=== PATIENT | female | born 1995 | race Caucasian/White ===

== ENCOUNTER → 2022-06-06 | Outpatient (CLI) | payer OTHER ==
[2022-06-06 16:30] LABS: CREATININE,RANDOM URINE 37.2 MG/DL; HEMATOCRIT 43.1 % (36.0-47.0); HEMOGLOBIN 14.4 g/dl (12.0-15.5); MEAN CORPUSCULAR HEMOGLOBIN 29.9 pg (27.0-33.0); MEAN CORPUSCULAR HGB CONC 33.4 g/dl (32.0-36.5); MEAN CORPUSCULAR VOLUME 89.4 fl (80.0-96.0); PLATELET COUNT, AUTOMATED 266 10^3/uL (150-450); RED BLOOD COUNT 4.82 10^6/uL (4.00-5.40); WHITE BLOOD COUNT 8.8 10^3/uL (4.0-10.0)
[2022-06-06 16:31] LABS: TOTAL PROTEIN,RANDOM URINE < 6.0 MG/DL (0.0-14.0)
[2022-06-06 16:42] LABS: ALBUMIN 3.1 G/DL (3.2-5.2); ALKALINE PHOSPHATASE 143 U/L (46-116); ALT/SGPT 25 U/L (7.0-40); AST/SGOT 22 U/L (<34); BILIRUBIN,TOTAL 0.5 MG/DL (0.3-1.2); BLOOD UREA NITROGEN 9 MG/DL (9-23); CALCIUM LEVEL 9.2 MG/DL (8.5-10.1); CARBON DIOXIDE LEVEL 27 MMOL/L (20-31); CHLORIDE LEVEL 98 MMOL/L (98-107); CREATININE FOR GFR 0.57 MG/DL (0.55-1.30); GLOMERULAR FILTRATION RATE > 60.0 (>60); GLUCOSE, FASTING 102 MG/DL (60-100); POTASSIUM SERUM 3.5 MMOL/L (3.5-5.1); SODIUM LEVEL 134 MMOL/L (136-145); TOTAL PROTEIN 6.9 G/DL (5.7-8.2)
[2022-06-06 18:20] LABS: APPEARANCE, URINE HAZY (CLEAR); BACTERIA, URINE AUTO 1+ (NEGATIVE); BILIRUBIN, URINE AUTO NEGATIVE (NEGATIVE); BLOOD, URINE BLOOD NEGATIVE (NEGATIVE); COLOR, URINE YELLOW (YELLOW); GLUCOSE, URINE (UA) AUTO NEGATIVE (NEGATIVE); KETONE, URINE AUTO TRACE mg/dL (NEGATIVE); LEUKOCYTE ESTERASE, URINE AUTO NEGATIVE (NEGATIVE); NITRITE, URINE AUTO NEGATIVE (NEGATIVE); PROTEIN, URINE AUTO NEGATIVE (NEGATIVE); RBC, URINE AUTO 0 /HPF (0-3); SPECIFIC GRAVITY URINE AUTO 1.005 (1.002-1.035); SQUAMOUS EPITHELIAL CELL UR AU 6 /HPF (0-6); UROBILINOGEN, URINE AUTO 0.2 mg/dL (0.0-2.0); WBC, URINE AUTO 0 /HPF (0-3)
== END ==
LOC: M LAB 15:28
PROVIDERS: ATTEND Obstetrics & Gynecology
DX: R03.0 Elevated blood-pressure reading, without diagnosis of hypertension (principal)

== ENCOUNTER 2022-06-28 10:00 | Inpatient (IN) | payer OTHER ==
[~2022-06-28] VITALS: Ht 160 cm; Wt 85.9 kg
[2022-06-28] VITALS (8 sets, daily range): BP systolic 126–153; BP diastolic 78–92
[2022-06-28] MEDS ORDERED: PRENTAB9 PO (11:37)
[2022-06-28] MEDS ORDERED: MAGN200T PO (11:37)
[2022-06-28] MEDS ORDERED: TUMS750C22 PO (11:37)
[2022-06-28] MEDS ORDERED: MAGN400C PO (11:48)
[2022-06-28] MEDS ORDERED: RIBO400T PO (11:48)
[2022-06-28] MEDS ORDERED: FAMO20TA PO (11:48)
[2022-06-28] MEDS ORDERED: HOME MED LIST COMPLETE! XX SCH (11:50)
[2022-06-28] MEDS ORDERED: LACTATED RINGER'S 1000 ML IV STA (12:19)
[2022-06-28] MEDS ORDERED: METHYLERGONOVINE MALEATE 0.2MG/ML 1ML VIAL IM PRN (12:20)
[2022-06-28] MEDS ORDERED: CARBOPROST TROMETHAMINE 250 MCG/ML AMP IM PRN (12:20)
[2022-06-28] MEDS ORDERED: TRANEXAMIC ACID INJection 1,000 MG in NS 100 ML IV PRN (12:20)
[2022-06-28] MEDS ORDERED: OXYTOCIN DRIP 30 UNITS in IV 1 EA IV PRN ×6 (12:20)
[2022-06-28] MEDS ORDERED: LIDOCAINE 1% MDV 20ML VIAL INFIL PRN (12:20)
[2022-06-28 13:16] LABS: HEMATOCRIT 39.7 % (36.0-47.0); HEMOGLOBIN 13.6 g/dl (12.0-15.5); MEAN CORPUSCULAR HEMOGLOBIN 30.5 pg (27.0-33.0); MEAN CORPUSCULAR HGB CONC 34.3 g/dl (32.0-36.5); PLATELET COUNT, AUTOMATED 247 10^3/uL (150-450); RED BLOOD COUNT 4.46 10^6/uL (4.00-5.40); WHITE BLOOD COUNT 8.1 10^3/uL (4.0-10.0)
[2022-06-28] MEDS: miSOPROStol 50MCG 1/2 TABLET PO SCH ×2 (13:16→21:29)
[2022-06-28 14:54] LABS: APPEARANCE, URINE HAZY (CLEAR); BACTERIA, URINE AUTO NEGATIVE (NEGATIVE); BILIRUBIN, URINE AUTO NEGATIVE (NEGATIVE); BLOOD, URINE BLOOD NEGATIVE (NEGATIVE); COLOR, URINE AMBER (YELLOW); GLUCOSE, URINE (UA) AUTO NEGATIVE (NEGATIVE); KETONE, URINE AUTO NEGATIVE (NEGATIVE); LEUKOCYTE ESTERASE, URINE AUTO NEGATIVE (NEGATIVE); MUCUS, URINE SMALL (NEGATIVE); NITRITE, URINE AUTO NEGATIVE (NEGATIVE); PROTEIN, URINE AUTO 1+ mg/dL (NEGATIVE); RBC, URINE AUTO 1 /HPF (0-3); SPECIFIC GRAVITY URINE AUTO 1.021 (1.002-1.035); SQUAMOUS EPITHELIAL CELL UR AU 5 /HPF (0-6); UROBILINOGEN, URINE AUTO 0.2 mg/dL (0.0-2.0); WBC, URINE AUTO 1 /HPF (0-3)
[2022-06-28 19:11] LABS: HIV 1&2 SCREEN ATELLICA NEGATIVE (NEGATIVE)
[2022-06-29] VITALS (49 sets, daily range): BP systolic 91–181; BP diastolic 50–100
[2022-06-29] MEDS ORDERED: ONDANSETRON 4MG 2ML VIAL IV PRN (01:00)
[2022-06-29] MEDS ORDERED: FENTANYL/ROPIVACAINE/NACL BAG 100 ML EPIDURAL SCH (01:00)
[2022-06-29] MEDS ORDERED: EPIDURAL/PCA KEYS XX PRN ×2 (01:00→02:25)
[2022-06-29] MEDS ORDERED: LR 500 ML IV PRN (01:00)
[2022-06-29] MEDS ORDERED: NALOXONE INJ 0.4MG/1ML VIAL IV PRN (01:00)
[2022-06-29] MEDS ORDERED: diphenhydrAMINE 50MG/ML VIAL IV PRN (01:00)
[2022-06-29] MEDS: LR 1,000 ML IV SCH ×2 (01:33→02:23)
[2022-06-29] MEDS: ePHEDrine SULFATE 25 MG/5 ML(5MG/ML) SYRINGE IVP PRN ×3 (01:38→02:15)
[2022-06-29] MEDS ORDERED: ePHEDrine SULFATE 25 MG/5 ML(5MG/ML) SYRINGE IVP PRN ×2 (02:25→02:35)
[2022-06-29] MEDS ORDERED: D5W/0.45% SODIUM CHLORIDE 1,000 ML IV SCH (04:30)
[2022-06-29] MEDS ORDERED: diphenhydrAMINE 50MG/ML VIAL IV ONE (04:30)
[2022-06-29] MEDS ORDERED: OXYTOCIN 30UNITS IN 0.9% NaCl 500ML IV BAG As Ordered ONE (06:19)
[2022-06-29] MEDS ORDERED: IBUPROFEN 600MG TAB PO PRN (07:05)
[2022-06-29] MEDS ORDERED: PROMETHAZINE 25 MG TAB PO PRN (07:05)
[2022-06-29] MEDS ORDERED: RHOGAM 300MCG (1500IU) INJ IM SCH (07:05)
[2022-06-29] MEDS ORDERED: FAMOTIDINE 20 MG TAB PO PRN (07:05)
[2022-06-29] MEDS ORDERED: DIBUCAINE 1% OINTMENT 30GM TOP PRN (07:05)
[2022-06-29] MEDS ORDERED: ACETAMINOPHEN TAB 650MG DOSE (2X325MG) PO PRN (07:05)
[2022-06-29] MEDS ORDERED: OXYTOCIN DRIP 30 UNITS in IV 1 EA IV SCH ×4 (07:05)
[2022-06-29] MEDS ORDERED: METHYLERGONOVINE MALEATE 0.2 MG TAB PO PRN (07:05)
[2022-06-29] MEDS ORDERED: IBUPROFEN 800 MG TAB PO PRN (07:05)
[2022-06-29 08:03] LABS: URIC ACID 5.4 MG/DL (3.1-7.8)
[2022-06-29 08:05] LABS: LDH LACTATE DEHYDROGENASE 187 U/L (120-246)
[2022-06-29 08:06] LABS: ALT/SGPT 17 U/L (7.0-40); AST/SGOT 19 U/L (<34); BILIRUBIN,TOTAL 0.3 MG/DL (0.3-1.2); CREATININE FOR GFR 0.62 MG/DL (0.55-1.30); GLOMERULAR FILTRATION RATE > 60.0 (>60)
[2022-06-29] MEDS ORDERED: PRENATAL VITAMINS CHEWABLE TABLET PO SCH (09:00)
[2022-06-29] MEDS: ACETAMINOPHEN 500 MG TAB PO PRN ×2 (10:52→22:09)
[2022-06-29] MEDS: PRENATAL VITAMINS CHEWABLE TABLET PO SCH (11:08)
[2022-06-29] MEDS: DOCUSATE SODIUM 100MG CAPSULE PO PRN (22:08)
[2022-06-30 06:00] VITALS: BP 106/67
[2022-06-30] MEDS: PRENATAL VITAMINS CHEWABLE TABLET PO SCH (08:54)
[2022-06-30 18:00] VITALS: BP 128/82
[2022-06-30] MEDS: DOCUSATE SODIUM 100MG CAPSULE PO PRN (23:14)
[2022-07-01 06:00] VITALS: BP 129/74
[2022-07-01] MEDS ORDERED: MEASLES,MUMPS,RUBELLA VACCINE INJ (MMR-II) SC.IMMUN ONE (09:00)
[2022-07-01] MEDS: PRENATAL VITAMINS CHEWABLE TABLET PO SCH (10:04)
== END 2022-07-01 14:20 | disposition home or self-care (01) | DRG 807 ==
LOC: M LDI 11:05 → M OBS 06-29 09:48
PROVIDERS: ADMIT Obstetrics & Gynecology; ATTEND Obstetrics & Gynecology
PROC: 0UQMXZZ Repair Vulva, External Approach (ICD-10-PCS; 2022-06-28)
PROC: 0HQ9XZZ Repair Perineum Skin, External Approach (ICD-10-PCS; 2022-06-28)
PROC: 3E033VJ Introduction of Other Hormone into Peripheral Vein, Percutaneous Approach (ICD-10-PCS; 2022-06-28)
PROC: 10E0XZZ Delivery of Products of Conception, External Approach (ICD-10-PCS; principal; 2022-06-29)
DX: O48.0 Post-term pregnancy (principal); Z37.0 Single live birth; Z3A.41 41 weeks gestation of pregnancy; O76 Abnormality in fetal heart rate and rhythm complicating labor and delivery; O70.0 First degree perineal laceration during delivery; O71.82 Other specified trauma to perineum and vulva; O69.81X0 Labor and delivery complicated by cord around neck, without compression, not applicable or unspecified; O13.4 Gestational [pregnancy-induced] hypertension without significant proteinuria, complicating childbirth; O69.82X0 Labor and delivery complicated by other cord entanglement, without compression, not applicable or unspecified

== ENCOUNTER 2024-07-17 10:02 | Outpatient (CLI) | payer OTHER ==
[~2024-07-17] VITALS: Ht 160 cm; Wt 81.0 kg
[~2024-07-17 10:02] MED LIST: FAMO20TA PO; MAGN200T PO; MAGN400C PO; PRENTAB9 PO; RIBO400T PO; TUMS750C22 PO
[2024-07-17 10:29] VITALS: BP 113/72
[2024-07-17] MEDS: ACETAMINOPHEN 500 MG TAB PO ONE (11:09)
== END 2024-07-17 11:39 | disposition home or self-care (01) ==
LOC: M LDO 10:02
PROVIDERS: ATTEND Specialist
DX: O36.8330 Maternal care for abnormalities of the fetal heart rate or rhythm, third trimester, not applicable or unspecified (principal); O26.893 Other specified pregnancy related conditions, third trimester; R51.9 Headache, unspecified; Z3A.33 33 weeks gestation of pregnancy
CPT/HCPCS: 59025; G0463

== ENCOUNTER → 2024-08-06 | Outpatient (REF) | payer OTHER | LOC: M SFHCWAGY 09:51 | PROVIDERS: ATTEND Obstetrics & Gynecology | DX: Z34.93 Encounter for supervision of normal pregnancy, unspecified, third trimester (principal); Z3A.36 36 weeks gestation of pregnancy ==